=== PATIENT | female | born 1965 ===

== ENCOUNTER 2018-05-09 12:37 | Emergency (ER) | payer SELFPAY ==
[2018-05-09 12:45] VITALS: O2SAT 100
--- NOTE | 2018-05-09 13:02 | C.PDOC ---
History Of Present Illness 52 year old female presents to ED for evaluation of n/v/d for the last 5 days. She reports multiple watery bowel movements. Last vomit was this morning. No fever. +abdominal cramping, bloating. NVD X 5 DAYS. MULTIPLE WATERY BM, LAST VOMIT THIS MORNING. NO FEVER. +ABD CRAMPING, BLOATING EXAM NONTOXIC ABD SOFT NT ND NO R/G REMAINDER NEG Time Seen by Provider: 05/09/18 12:54 Chief Complaint (Nursing): Abdominal Pain History Per: Patient History/Exam Limitations: no limitations Onset/Duration Of Symptoms: Days Current Symptoms Are (Timing): Still Present Quality Of Discomfort: Cramping, "Pain" Associated Symptoms: Nausea, Vomiting, Diarrhea Exacerbating Factors: None Alleviating Factors: None Recent travel outside of the [place]: No Additional History Per: Patient Abnormal Vaginal Bleeding: No Past Medical History Reviewed: Historical Data, Nursing Documentation, Vital Signs Vital Signs: Last Vital Signs Temp 97.8 F 05/09/18 12:40 Pulse 65 05/09/18 12:40 Resp 18 05/09/18 12:40 BP 126/85 05/09/18 12:40 Pulse Ox 100 05/09/18 13:45 Family History: States: Unknown Family Hx - Social History Hx Alcohol Use: No Hx Substance Use: No - Immunization History Hx Tetanus Toxoid Vaccination: No Hx Influenza Vaccination: No Hx Pneumococcal Vaccination: No Review Of Systems Except As Marked, All Systems Reviewed And Found Negative. Constitutional: Negative for: Fever, Chills Gastrointestinal: Positive for: Nausea, Vomiting, Abdominal Pain, Diarrhea. Negative for: Melena, Hematochezia, Hematemesis Genitourinary: Negative for: Dysuria, Frequency, Hematuria Musculoskeletal: Negative for: Back Pain Physical Exam - Physical Exam Appears: Non-toxic, No Acute Distress Skin: Normal Color, Warm, Dry Head: Atraumatic, Normacephalic Eye(s): bilateral: Normal Inspection Oral Mucosa: Moist Neck: Normal ROM, Supple Cardiovascular: Rhythm Regular, No Murmur Respiratory: Normal Breath Sounds, No Rales, No Rhonchi, No Wheezing Gastrointestinal/Abdominal: Soft, No Tenderness, No Distention, No Guarding, No Rebound Back: No CVA Tenderness Extremity: Normal ROM Neurological/Psych: Oriented x3, Normal Speech ED Course And Treatment O2 Sat by Pulse Oximetry: 100 (RA) Pulse Ox Interpretation: Normal Reevaluation Time: 14:53 Reassessment Condition: Improved Medical Decision Making Medical Decision Making: Plan: Bentyl Lomotil Zofran IV fluids Disposition Counseled Patient/Family Regarding: Diagnosis, Need For Followup, Rx Given - Disposition Referrals: [facility] [Outside] [facility] [Outside] Disposition: HOME/ ROUTINE Disposition Time: 14:53 Condition: IMPROVED Prescriptions: Loperamide HCl [Imodium A-D] 2 mg PO DAILY PRN #12 capsule PRN Reason: Diarrhea Ondansetron [Zofran Odt] 4 mg PO TID PRN #9 odt PRN Reason: Nausea/Vomiting Instructions: Viral Gastroenteritis, Adult (DC) Forms: [employer] (Slovak) Print Language: [place] - Clinical Impression Clinical Impression: Diarrhea, Vomiting - Scribe Statement The provider has reviewed the documentation as recorded by the Scribe KP All medical record entries made by the Scribe were at my direction and personally dictated by me. I have reviewed the chart and agree that the record accurately reflects my personal performance of the history, physical exam, medical decision making, and the department course for this patient. I have also personally directed, reviewed, and agree with the discharge instructions and disposition.
[2018-05-09] MEDS ORDERED: Sodium Chloride 0.9% 1,000 ML IV ONE (13:03)
[2018-05-09] MEDS ORDERED: Atropine-Diphenoxylate 0.025-2.5 mg Tab PO STA (13:04)
[2018-05-09] MEDS ORDERED: Sodium Chloride 0.9% 1,000 ML ONE (13:21)
[2018-05-09] MEDS ORDERED: Atropine-Diphenoxylate 0.025-2.5 mg Tab ONE (13:21)
[2018-05-09 15:10] VITALS: BP 121/80; PULSE 68; RESP 16; TEMP 97.9
== END 2018-05-09 15:10 | disposition home or self-care (01) ==
LOC: C.ER 12:37
DX: R19.7 Diarrhea, unspecified (principal); R11.10 Vomiting, unspecified
CPT/HCPCS: 96361; 96372; 96374; 99284; J0500; J2405; J7030